=== PATIENT | male | born 1945 | race Hispanic/Latino ===

== ENCOUNTER → 2024-01-27 | Outpatient (CLI) | payer OTHER, MEDICARE | END | disposition home or self-care (01) | LOC: RAH 12:23 | PROVIDERS: ATTEND Urology | DX: N28.1 Cyst of kidney, acquired (principal); R31.29 Other microscopic hematuria | CPT/HCPCS: 76770 ==

== ENCOUNTER 2024-05-25 13:14 | Emergency (ER) | payer OTHER, MEDICARE ==
[~2024-05-25] VITALS: Ht 172.7 cm; Wt 85.3 kg
--- NOTE | 2024-05-25 13:33 | NUR ---
visua acuity test was attempted but pt is unable to distinguish chart with either eye and both eyes open. pt denies the use of eyeglasses. pt reports ocular lens surgery several years ago and reports that he was advised to wear glasses but never wears them
--- NOTE | 2024-05-25 14:50 | HMCIMG ---
Exam: NONCONTRAST CT BRAIN REASON: Headache . COMPARISON: None. TECHNIQUE: Images are obtained from vertex to the skull base. The exam was performed without IV contrast. FINDINGS: There is normal appearing brain parenchyma. There are no focal mass lesions. There is is no evidence of intracranial hemorrhage or acute stroke. Ventricles and sulci appear normal. Posterior fossa and brainstem structures are unremarkable. Paranasal sinuses and remaining extracranial soft tissues appear normal as well. IMPRESSION: 1. Normal noncontrast CT brain. CT was performed with one or more following dose reduction techniques: automated exposure control, adjustment of the mA and kv according to patient's size, or use of a iterative reconstruction technique.
--- NOTE | 2024-05-25 15:15 | NUR ---
Dr. Valadez at bedside, right eye was irrigated until pt reports he is no longer feeling discomfort. pt reports relief of foreign body sensation to right eye
[2024-05-25] MEDS: TETRACAINE HCL 0.5% 4 ML OPHTH SOLN ONE (15:19)
[2024-05-25] MEDS: TETRACAINE HCL 0.5% 4 ML OPHTH SOLN OP SCH (15:19)
[2024-05-25] MEDS: TobRAMYCin/DEXAmethASONE OPTH SUSP 2.5 ML BOT OD SCH (15:22)
--- NOTE | 2024-05-25 15:37 | ERN ---
General Chief Complaint: Eye Problems Stated Complaint: RT EYE INJURY Time Seen by MD: 13:38 History of Present Illness Initial Comments 78-year-old male who was doing some yd work when something when in his eye. Patient says that he was some foreign body sensation in the eye. Patient is a able to see from the eye however has feeling that this something in there. Patient otherwise has no concerns. Allergies: Coded Allergies: No Known Allergies (Unverified Allergy, 06/02/13) Past Medical History Past Medical History: Hypertension, Prostatitis Past Surgical History: Other Surgical History Other: HERNIA ROS Dictation CONSTITUTIONAL: Negative except for HPI HEAD/FACE: Negative except for HPI EENT: Negative except for HPI RESPIRATORY: Negative except for HPI GASTROINTESTINAL/ABDOMINAL: Negative except for HPI GENITOURINARY: Negative except for HPI MUSCULOSKELETAL: Negative except for HPI INTEGUMENTARY: Negative except for HPI NEUROLOGICAL/PSYCH: Negative except for HPI HEMATOLOGIC/LYMPHATIC: Negative except for HPI All Systems Negative, Except as noted above. 13 point review of systems assessed and all negative except for above. Physical Exam Physical Exam Dictation On exam there is corneal abrasion noted on wood lamp otherwise no foreign object noted full range of extraocular movement without any discomfort MDM MDM: Differential diagnosis: There are no social concerns with this patient. Prescription drug management Prescriptions will include: Medical management and examination interpretation discussions were had by me with other qualified healthcare professionals as indicated for the patient's care. Follow up Ophthalmology patient was in agrees with the plan of care ED Course Orders Procedure Category Date Status Time Visual Acuity Test CPOE 05/25/24 Transmitted (Er) 13:22 Ct Head/Brain W/O CT 05/25/24 Resulted Contrast 13:37 Tetracaine Hcl PHA 05/25/24 Complete (Pontocaine 0.5% 15:03 Tetracaine Hcl PHA 05/25/24 In Process (Pontocaine 0.5% 15:30 Tobramycin PHA 05/25/24 In Process Sulf/Dexamethasone 15:30 Current Medications Medications (Trade) Dose Ordered Sig/Sabina Route PRN Reason Start Time Stop Time Status Last Admin Dose Admin Tetracaine HCl (Pontocaine 0.5% Ophth Soln) 1 OR 2 DROPS ONCE OP 05/25/24 15:30 06/24/24 15:29 05/25/24 15:19 Tetracaine HCl (Pontocaine 0.5% Ophth Soln) 20 drop STK-MED ONCE .ROUTE 05/25/24 15:03 05/25/24 15:03 DC Tobramycin/ Dexamethasone (TobraDEX EYE DROPS) 1 drop Q4H OD 05/25/24 15:30 06/24/24 15:29 05/25/24 15:22 Vital Signs Date Time Temp Pulse Resp B/P (MAP) Pulse Ox O2 Delivery O2 Flow Rate FiO2 05/25/24 15:15 97.7 64 18 165/72 98 Room Air* 0 21 05/25/24 13:30 64 18 162/71 98 Room Air* 0 21 05/25/24 13:16 97.7 74 16 156/81 98 Room Air 0 DX & DISP Disposition: Discharge Departure Impression: Primary Impression: Corneal abrasion Condition: Stable Referrals: VALERIA LOPEZ MD (PCP) DMITRY ALCALA MD May 25, 2024 15:37
[2024-05-25 15:50] VITALS: BP 169/75; PULSE 64; RESP 18; TEMP 97.7; O2SAT 98
== END 2024-05-25 15:53 | disposition home or self-care (01) ==
LOC: EDH 13:14
DX: S05.00XA Injury of conjunctiva and corneal abrasion without foreign body, unspecified eye, initial encounter (principal); I10 Essential (primary) hypertension; X58.XXXA Exposure to other specified factors, initial encounter; Y93.89 Activity, other specified; Y92.89 Other specified places as the place of occurrence of the external cause; Y99.8 Other external cause status
CPT/HCPCS: 70450; 99284